=== PATIENT | male | born 2000 | race Two or more races ===

== ENCOUNTER 2024-11-22 07:16 | Emergency (ER) | payer OTHER ==
[2024-11-22 07:33] VITALS: RESP 18; TEMP 98.6; BMI 25.1
[2024-11-22] MEDS ORDERED: CEPHALEXIN MONOHYDRATE 500 MG CAPSULE (UD) ONE (10:32)
[2024-11-22] MEDS ORDERED: ACETAMINOPHEN 500 MG TABLET (FP) ONE (10:33)
[2024-11-22] MEDS ORDERED: DIPHTH,PERTUSS(ACELL),TET 0.5 ML DISP.SYRIN IM ONE (10:33)
[2024-11-22] MEDS: DIPHTH,PERTUSS(ACELL),TET 0.5 ML DISP.SYRIN IM ONE (10:40)
[2024-11-22] MEDS: ACETAMINOPHEN 500 MG TABLET (FP) PO ONE (10:41)
[2024-11-22] MEDS: CEPHALEXIN MONOHYDRATE 500 MG CAPSULE (UD) PO ONE (10:41)
[2024-11-22 11:58] VITALS: BP 126/79; PULSE 83
[2024-11-22 12:15] LABS: HIV INTERPRETATION NEGATIVE (NEGATIVE)
[2024-11-22] MEDS: BACITRACIN ZINC 15 GM TUBE TOPICAL OINTMENT TP ONE (12:23)
[2024-11-22] MEDS ORDERED: BACITRACIN ZINC 15 GM TUBE TOPICAL OINTMENT ONE (12:24)
== END 2024-11-22 12:48 | disposition home or self-care (01) ==
LOC: JER 07:16
PROC: 3E0234Z Introduction of Serum, Toxoid and Vaccine into Muscle, Percutaneous Approach (ICD-10-PCS; principal; 2024-11-22)
DX: S90.821A Blister (nonthermal), right foot, initial encounter (principal); S90.822A Blister (nonthermal), left foot, initial encounter; M79.89 Other specified soft tissue disorders; M25.471 Effusion, right ankle; M25.472 Effusion, left ankle; Z23 Encounter for immunization; X58.XXXA Exposure to other specified factors, initial encounter
CPT/HCPCS: 36415; 86803; 87389; 90471; 90715; 99284-25